=== PATIENT | female | born 1985 | race American Indian/Alaskan Native ===

== ENCOUNTER 2017-01-15 14:39 | Emergency (ER) | payer SELFPAY ==
--- NOTE | 2017-01-15 15:03 | Emergency Department Report ---
Stated Complaint: EXCESSIVE MENSTRUAL BLEEDING / 30+ DAYS Time Seen by Provider: 01/15/17 15:00 - HPI History of Present Illness: PT c/o vaginal bleeding. PT states she was on her cycle when she saw her OB/ [facility]ER[facility] 12-20-16. PT states she is still bleeding. PT states she has hx of fibroids , fibroid removal, and IUD. PT states she needed a blood transfusion before due to her cycle's - ROS Review of Systems: - dysuria + fatigue - Exam Physical Exam: PT is alert and appropriate gcs 15 no focal weakness MSE screening note: Focused history and physical exam performed. Due to findings the following was ordered: labs ED Disposition for MSE Condition: Stable
[2017-01-15 15:20] LABS: Basophils % (Auto) 1.1 % (0.0-1.8); Eosinophils % (Auto) 1.1 % (0.0-4.3); Hematocrit 33.2 % (30.3-42.9); Hemoglobin 10.9 gm/dl (10.1-14.3); Mean Corpuscular HGB Conc 33 % (30-34); Mean Corpuscular Volume 78 fl (79-97); Platelet Count 240 K/mm3 (140-440); Red Blood Count 4.25 M/mm3 (3.65-5.03); White Blood Count 8.4 K/mm3 (4.5-11.0)
[2017-01-15 15:21] LABS: Mean Corpuscular Hemoglobin 26 pg (28-32)
[2017-01-15 15:37] LABS: Anion Gap 17 mmol/L; BUN/Creatinine Ratio 8.75; Blood Urea Nitrogen 7 mg/dL (7-17); Calcium 9.1 mg/dL (8.4-10.2); Carbon Dioxide 26 mmol/L (22-30); Chloride 100.7 mmol/L (98-107); Glucose 77 mg/dL (65-100); Potassium 3.4 mmol/L (3.6-5.0); Sodium 140 mmol/L (137-145)
--- NOTE | 2017-01-15 20:51 | Emergency Department Report ---
HPI - General Chief Complaint: Vaginal Bleeding Time Seen by Provider: 01/15/17 15:00 - HPI HPI: Room 30 The patient is a 31-year-old female presenting with a chief complaint of menorrhagia. The patient states she's had vaginal bleeding since 12/20/2016. The patient states the bleeding initially was light going approximately one pad per day. The patient states over the past 2 weeks since she is comfortable at [place] vaginal bleeding has increased gone through approximately 24 pads per day. 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 The patient states she currently feels fine just had some cramping earlier. Patient denies shortness of breath. The patient states she suffered menorrhagia last year requiring blood transfusion Location: Pelvis Duration: Constant since 12/20/2016 Quality: Cramping Severity: Moderate Modifying factors: [see above] Context: [see above] Mode of transportation: unknown ED Past Medical Hx - Past Medical History Previous Medical History?: Yes Additional medical history: Uterine fibroids, IUD - Surgical History Past Surgical History?: Yes Additional Surgical History: IUD - Family History Family history: no significant - Social History Smoking Status: Former Smoker Substance Use Type: Alcohol (rarely), Marijuana, Prescribed - Medications Home Medications: Home Medications Medication Instructions Recorded Confirmed Last Taken Type Docusate Sodium [Colace] 100 mg PO BID PRN #30 capsule 01/15/17 Unknown Rx Ferrous Sulfate [Feosol 325 MG tab] 325 mg PO BID #30 tablet 01/15/17 Unknown Rx medroxyPROGESTERone ACETATE 10 mg PO QDAY #10 tablet 01/15/17 Unknown Rx [Provera] ED Review of Systems ROS: Stated complaint: EXCESSIVE MENSTRUAL BLEEDING / 30+ DAYS Other details as noted in HPI Comment: All other systems reviewed and negative Constitutional: denies: chills, fever Eyes: denies: eye pain, eye discharge, vision change ENT: denies: ear pain, throat pain Respiratory: denies: cough, shortness of breath, wheezing Cardiovascular: denies: chest pain, palpitations Endocrine: no symptoms reported Gastrointestinal: abdominal pain (cramping) Genitourinary: abnormal menses Musculoskeletal: denies: back pain, joint swelling, arthralgia Skin: denies: rash, lesions Neurological: denies: headache, weakness, paresthesias Psychiatric: denies: anxiety, depression Hematological/Lymphatic: denies: easy bleeding, easy bruising Physical Exam - Physical Exam Vital Signs: Vital Signs 01/15/17 15:00 Temperature 99 F Pulse Rate 88 Respiratory 16 Rate Blood Pressure 138/75 O2 Sat by Pulse 97 Oximetry Physical Exam: GENERAL: The patient is well-developed well-nourished female lying on stretcher not appearing to be in acute distress. [] HEENT: Normocephalic. Atraumatic. Extraocular motions are intact. Patient has moist mucous membranes. NECK: Supple. Trachea midline CHEST/LUNGS: Clear to auscultation. There is no respiratory distress noted. HEART/CARDIOVASCULAR: Regular. There is no tachycardia. There is no gallop rub or murmur. ABDOMEN: Abdomen is soft, nontender. Patient has normal bowel sounds. There is no abdominal distention. SKIN: There is no rash. There is no edema. There is no diaphoresis. NEURO: The patient is awake, alert, and oriented. The patient is cooperative. The patient has normal speech MUSCULOSKELETAL: There is no evidence of acute injury. PELVIC: Small amount of blood at the cervical os and in the vault. ED Course Vital Signs 01/15/17 15:00 Temperature 99 F Pulse Rate 88 Respiratory 16 Rate Blood Pressure 138/75 O2 Sat by Pulse 97 Oximetry ED Medical Decision Making - Lab Data Result diagrams: 01/15/17 15:08 01/15/17 15:08 Laboratory Tests 01/15/17 01/15/17 01/15/17 15:08 15:08 15:08 WBC 8.4 RBC 4.25 Hgb 10.9 Hct 33.2 MCV 78 L MCH 26 L MCHC 33 RDW 17.0 H Plt Count 240 Lymph % (Auto) 38.0 H Wilcox % (Auto) 4.7 Eos % (Auto) 1.1 Baso % (Auto) 1.1 Lymph # 3.2 Wilcox # 0.4 Eos # 0.1 Baso # 0.1 Seg Neutrophils % 55.1 Seg Neutrophils # 4.6 Sodium 140 Potassium 3.4 L Chloride 100.7 Carbon Dioxide 26 Anion Gap 17 BUN 7 Creatinine 0.8 Estimated GFR > 60 BUN/Creatinine Ratio 8.75 Glucose 77 Calcium 9.1 HCG, Qual Negative - Medical Decision Making Patient refuses ultrasound - Differential Diagnosis menorrhagia, metromenorrhagia, ectopic Critical care attestation.: If time is entered above; I have spent that time in minutes in the direct care of this critically ill patient, excluding procedure time. ED Disposition Clinical Impression: Menorrhagia Disposition: LEFT AGAINST MED ADVICE Is pt being admited?: No Does the pt Need Aspirin: No Condition: Stable Instructions: Menorrhagia (ED) Additional Instructions: Return to the emergency department immediately should you develop worsening symptoms, fever, inability to tolerate food or liquid or any other concerns. Prescriptions: Docusate Sodium [Colace] 100 mg PO BID PRN #30 capsule PRN Reason: Constipation Ferrous Sulfate [Feosol 325 MG tab] 325 mg PO BID #30 tablet medroxyPROGESTERone ACETATE [Provera] 10 mg PO QDAY #10 tablet Referrals: [facility] [Provider Group] - 3-5 Days Forms: AMA Form Time of Disposition: 21:04 (patient refusing pelvic ultrasound)
[2017-01-15 20:58] VITALS: BP 144/94
== END 2017-01-15 21:15 | disposition left against medical advice (07) ==
LOC: ED 14:39
DX: N92.0 Excessive and frequent menstruation with regular cycle (principal); F12.10 Cannabis abuse, uncomplicated; Z87.891 Personal history of nicotine dependence
CPT/HCPCS: 36415; 80048; 84703; 85025; 99283

== ENCOUNTER 2021-12-30 16:20 | Emergency (ER) | payer OTHER ==
[2021-12-30 16:50] VITALS: BP 136/98
[2021-12-30] MEDS ORDERED: FLUORESCEIN 1 MG STRIP OP ONE ×2 (18:06→18:17)
[2021-12-30] MEDS ORDERED: TETRACAINE 0.5% OPHTH SOLN 4ML OS ONE (18:07)
[2021-12-30] MEDS ORDERED: TETRACAINE 0.5% OPHTH SOLN 4ML ONE (18:16)
[2021-12-30] MEDS ORDERED: BALANCED SALT IRRIG (BSS) OPHTH SOLN 15 ML ONE (18:16)
--- NOTE | 2021-12-30 19:22 | Emergency Department Report ---
ED General Adult HPI - General Chief complaint: Eye Problems Stated complaint: POSSIBLE FOREIGN BODY LEFT EYE Time Seen by Provider: 12/30/21 17:48 Source: patient Mode of arrival: Ambulatory Limitations: No Limitations - History of Present Illness Initial comments: 36-year-old female with no significant past medical history reports to the ER with complaints of left eye irritation. Patient reports she was at work when some dust particles flew into her eye. Patient states she attempted to wash her eye out but the irritation got worse. Patient woke up this morning with slight dryness to her left eye and increased eye irritation. Patient reports blurry vision and eye discomfort to the left eye. Severity scale (0 -10): 8 - Related Data Previous Rx's Medication Instructions Recorded Last Taken Type Docusate Sodium [Colace] 100 mg PO BID PRN #30 capsule 01/15/17 Unknown Rx Ferrous Sulfate [Feosol 325 MG tab] 325 mg PO BID #30 tablet 01/15/17 Unknown Rx medroxyPROGESTERone ACETATE 10 mg PO QDAY #10 tablet 01/15/17 Unknown Rx [Provera] Acetaminophen/Codeine [Tylenol 1 tab PO Q6H PRN 2 Days #8 tab 12/30/21 Unknown Rx /Codeine # 3 tab] Erythromycin [Erythromycin Ophth 1 applic OD Q6H 7 Days #1 tube 12/30/21 Unknown Rx Oint] Allergies Allergy/AdvReac Type Severity Reaction Status Date / Time No Known Allergies Allergy Unverified 01/15/17 15:00 ED Review of Systems ROS: Stated complaint: POSSIBLE FOREIGN BODY LEFT EYE Other details as noted in HPI Comment: All other systems reviewed and negative Eyes: eye pain (Left eye), eye discharge (Left eye) ED Past Medical Hx - Past Medical History Previous Medical History?: Yes Additional medical history: Uterine fibroids, IUD, Child - Surgical History Past Surgical History?: Yes Additional Surgical History: IUD, - Social History Smoking Status: Former Smoker Substance Use Type: Alcohol (rarely), Marijuana, Prescribed - Medications Home Medications: Home Medications Medication Instructions Recorded Confirmed Last Taken Type Docusate Sodium [Colace] 100 mg PO BID PRN #30 capsule 01/15/17 Unknown Rx Ferrous Sulfate [Feosol 325 MG tab] 325 mg PO BID #30 tablet 01/15/17 Unknown Rx medroxyPROGESTERone ACETATE 10 mg PO QDAY #10 tablet 01/15/17 Unknown Rx [Provera] Acetaminophen/Codeine [Tylenol 1 tab PO Q6H PRN 2 Days #8 tab 12/30/21 Unknown Rx /Codeine # 3 tab] Erythromycin [Erythromycin Ophth 1 applic OD Q6H 7 Days #1 tube 12/30/21 Unknown Rx Oint] ED Physical Exam - General Limitations: No Limitations General appearance: alert, in no apparent distress - Head Head exam: Present: atraumatic, normocephalic - Eye Eye exam: Present: normal appearance, PERRL, EOMI, other (Left eye with fluorescein stain uptakecorneal abrasion present. No foreign body present.) - Expanded Eye Exam Expanded Pupils: Regular, Round: Bilateral, Reactive: Bilateral Sclera/Conjunctival: Injection: Left, Exudate: Left Visual acuity (R) = 20/: 40 Visual acuity (L) = 20/: 100 With correction: No - ENT ENT exam: Present: mucous membranes moist - Neck Neck exam: Present: normal inspection - Respiratory Respiratory exam: Present: normal lung sounds bilaterally. Absent: respiratory distress - Cardiovascular Cardiovascular Exam: Present: regular rate, normal rhythm. Absent: systolic murmur, diastolic murmur, rubs, gallop - GI/Abdominal GI/Abdominal exam: Present: soft, normal bowel sounds - Extremities Exam Extremities exam: Present: normal inspection - Back Exam Back exam: Present: normal inspection - Neurological Exam Neurological exam: Present: alert, oriented X3 - Psychiatric Psychiatric exam: Present: normal affect, normal mood - Skin Skin exam: Present: warm, dry, intact, normal color. Absent: rash ED Course Vital Signs 12/30/21 16:47 Temperature 98 F Pulse Rate 88 Respiratory 20 Rate Blood Pressure 136/98 [Right] O2 Sat by Pulse 100 Oximetry ED Medical Decision Making - Medical Decision Making 36-year-old female with no significant past medical history reports to the ER with complaints of left eye irritation. Patient reports she was at work when some dust particles flew into her eye. Patient states she attempted to wash her eye out but the irritation got worse. Patient woke up this morning with slight dryness to her left eye and increased eye irritation. Patient reports blurry vision and eye discomfort to the left eye. Left eye with positive fluor stain up. corneal abrasion noted. No foreign body noted to left or right eye. Conjunctive a is injected. No concerns for orbital cellulitis present. EOM intact with no pain right 20/40, left 20/100 both 20/60 eyes. Patient diagnosed with corneal abrasion to the left eye. Patient to be sent home with erythromycin eye ointment for treatment. Patient informed that if vision gets worse to report back to the ER. Patient agrees with plan of care verbalized understanding. No further work-up is needed at this time. Vital Signs 12/30/21 16:47 Temperature 98 F Pulse Rate 88 Respiratory 20 Rate Blood Pressure 136/98 [Right] O2 Sat by Pulse 100 Oximetry Critical care attestation.: If time is entered above; I have spent that time in minutes in the direct care of this critically ill patient, excluding procedure time. ED Disposition Clinical Impression: Left cornea abrasion Qualifiers: Encounter type: initial encounter Qualified Code(s): S05.02XA - Injury of conjunctiva and corneal abrasion without foreign body, left eye, initial encounter Disposition: 01 HOME / SELF CARE / HOMELESS Is pt being admited?: No Condition: Stable Instructions: Corneal Abrasion Prescriptions: Erythromycin [Erythromycin Ophth Oint] 1 applic OD Q6H 7 Days #1 tube Acetaminophen/Codeine [Tylenol /Codeine # 3 tab] 1 tab PO Q6H PRN 2 Days #8 tab PRN Reason: Pain , Severe (7-10) Referrals: SANTOS GILES MD [Primary Care Provider] - 3-5 Days
== END 2021-12-30 19:32 | disposition home or self-care (01) ==
LOC: ED 16:20
DX: S05.02XA Injury of conjunctiva and corneal abrasion without foreign body, left eye, initial encounter (principal); Z87.891 Personal history of nicotine dependence; X58.XXXA Exposure to other specified factors, initial encounter; Y93.89 Activity, other specified; Y92.89 Other specified places as the place of occurrence of the external cause; Y99.8 Other external cause status
CPT/HCPCS: 99282; 99283